=== PATIENT | male | born 1945 | race Caucasian/White ===

== ENCOUNTER 2017-02-07 05:54 | Inpatient (IN) | payer OTHER, MEDICARE ==
[2017-01-18 13:47] VITALS: BMI 34.0
--- NOTE | 2017-01-18 14:21 | PAT Medication Instructions ---
Service Date Jan 18, 2017. Current Home Medication List Albuterol Sulfate (Proair Respiclick), 2 PUFF INH Q4 PRN for SOB/Wheezing Cyclobenzaprine Hcl (Flexeril), 10 MG PO BID PRN for Muscle Spasms Gabapentin (Neurontin), 900 MG PO TID Hctz/Lisinopril (Lisinopril/Hctz 10/12.5 Mg), 1 TAB PO QPM Metformin Hcl (Glucophage), 850 MG PO 1400&2200 Oxycodone/Acetaminophen 10MG/325MG (Percocet 10MG/325MG), 2 TAB PO HS PRN for Pain Pravastatin (Pravachol ), 20 MG PO QPM Sitagliptin (Januvia), 50 MG PO QAM Medication Instructions For Your Scheduled Surgery - Hold the following medications 48 hours prior to surgery: Metformin Hcl (Glucophage), 850 MG PO 1400&2200 - Hold the following medications the morning of surgery: Cyclobenzaprine Hcl (Flexeril), 10 MG PO BID PRN for Muscle Spasms Sitagliptin (Januvia), 50 MG PO QAM - Take the following medications the morning of surgery with a sip of water: Oxycodone/Acetaminophen 10MG/325MG (Percocet 10MG/325MG), 2 TAB PO HS PRN for Pain (okay to take up to 4 hours prior to surgery if needed) Gabapentin (Neurontin), 900 MG PO TID Albuterol Sulfate (Proair Respiclick), 2 PUFF INH Q4 PRN for SOB/Wheezing (if needed) - Hold the following medications as scheduled the night before surgery: Hctz/Lisinopril (Lisinopril/Hctz 10/12.5 Mg), 1 TAB PO QPM - Take the following medications as scheduled the night before surgery: Oxycodone/Acetaminophen 10MG/325MG (Percocet 10MG/325MG), 2 TAB PO HS PRN for Pain (if needed) Pravastatin (Pravachol ), 20 MG PO QPM Gabapentin (Neurontin), 900 MG PO TID Albuterol Sulfate (Proair Respiclick), 2 PUFF INH Q4 PRN for SOB/Wheezing (if needed) If you have any questions please call us at [phone] or [phone] or [phone]
--- NOTE | 2017-01-18 14:58 | DIAGNOSTIC IMAGING REPORT ---
CHEST PREADMISSION(PA/LAT) CLINICAL HISTORY: 71 years-old Male presenting with preadmission chest x-ray, COPD. TECHNIQUE: PA and lateral views of the chest were obtained. COMPARISON: None. FINDINGS: Cardiomediastinal silhouette normal. Minimal linear opacity at the lingula. No other focal infiltrate. No pleural effusion or pneumothorax. Osseous structures normal. Upper abdomen normal. IMPRESSION: 1. Possible minimal atelectasis or scarring in the lingula. No convincing evidence of acute cardiopulmonary disease. Electronically signed by: Star Meza M.D. 01/18/2017 2:56 PM Dictated Date/Time: 01/18/2017 2:56 PM
[2017-01-18 15:01] LABS: BASO % 0.2 %; BASO ABS # 0.01 K/uL (0-0.2); COMPLETE YES; EOS % 1.6 %; HEMATOCRIT 36.6 % (42-52); IG% 0.2 %; LYMPH % 18.4 %; LYMPH ABS # 1.05 K/uL (1.2-3.4); MEAN CELL VOLUME 89.3 fL (80-100); MEAN CORPUSCULAR HEMOGLOBIN 31.5 pg (25-34); MEAN CORPUSCULAR HGB CONC 35.2 g/dl (32-36); MEAN PLATELET VOLUME 10.2 fL (7.4-10.4); MONO % 6.7 %; NEUT % 72.9 %; PLATELET COUNT 194 K/uL (130-400); WHITE BLOOD COUNT 5.71 K/uL (4.8-10.8)
[2017-01-18 15:07] LABS: URINE APPEARANCE CLEAR (CLEAR); URINE BILIRUBIN NEG (NEG); URINE COLOR YELLOW; URINE NITRITE NEG (NEG); URINE SPECIFIC GRAVITY 1.023 (1.000-1.030); UROBILINOGEN NEG (NEG); ZZUR CULT IF INDIC CLEAN CATCH NO
[2017-01-18 15:22] LABS: BUN/CREATININE RATIO 15.5 (10-20); CALCIUM 8.9 mg/dl (8.5-10.1); CREATININE 1.4 mg/dl (0.60-1.40); POTASSIUM 4.3 mmol/L (3.5-5.1)
[2017-01-18 15:32] LABS: BETA-HYDROXYBUTYRATE 1.12 mg/dL (0.2-2.81)
[2017-01-18 15:33] LABS: MANUAL MICROSCOPIC REQUIRED? NO; REVIEW REQ? NO
[~2017-02-07] VITALS: Ht 177.8 cm; Wt 109.0 kg
[2017-02-07] VITALS (11 sets, daily range): BP systolic 104–169; BP diastolic 69–96; PULSE 90–99; TEMP 36.3–36.8; O2SAT 91–98; BMI 34.0
[~2017-02-07 05:54] MED LIST: ALBU18002 INH; CYCL10TA6 PO; GABA-113 PO; LSN/10125 PO; METF-383 PO; OXYC-106 PO; PRAV20TA PO; SITA50TA3 PO
[2017-02-07] MEDS ORDERED: CEFAZOLIN 2000 MG/60 ML D5W IV SCH (06:00)
[2017-02-07] MEDS ORDERED: LACTATED RINGER'S 1000ML 1,000 ML IV SCH (06:00)
[2017-02-07] MEDS ORDERED: MIDAZOLAM HCL 1 MG/ML 2ML VIAL ONE (06:43)
[2017-02-07] MEDS ORDERED: FENTANYL CITRATE INJ 50 MCG/1 ML 2 ML VIAL ONE ×6 (06:43→10:51)
[2017-02-07] MEDS ORDERED: BACITRACIN 50000 UNIT VIAL ONE (07:02)
[2017-02-07] MEDS ORDERED: BUPIVACAINE/EPINEPHRINE 0.5% MPF 1:200,000 30 ML VIAL ONE (07:02)
[2017-02-07] MEDS ORDERED: INSULIN HUMAN REGULAR PER UNIT 5 UNITS in SYRINGE 0 ML IV STA ×2 (07:13→11:28)
[2017-02-07] MEDS ORDERED: HYDROmorphone INJ 1 MG/ML SYR IV PRN (07:15)
[2017-02-07] MEDS ORDERED: ATROPINE SULFATE 0.1 MG/ML 5ML SYR IV PRN (07:15)
[2017-02-07] MEDS ORDERED: EpHEDrine SULFATE INJ 50 MG/ML AMP IV PRN (07:15)
[2017-02-07] MEDS ORDERED: FENTANYL CITRATE INJ 50 MCG/1 ML 2 ML VIAL IV PRN (07:15)
[2017-02-07] MEDS ORDERED: ONDANSETRON INJ 2 MG/ML 2 ML VIAL IV PRN ×2 (07:15→10:45)
[2017-02-07] MEDS ORDERED: NovoLIN-R INSULIN PER UNIT CHARGE ONE ×2 (07:17→11:22)
--- NOTE | 2017-02-07 07:35 | History & Physical Bridge Note ---
H&P Re-Evaluation Bridge Note: I have examined the patient, reviewed the History & Physical and in the interval since the performance of the History & Physical I have noted the following changes of clinical significance: No changes noted
--- NOTE | 2017-02-07 07:36 | History and Physical ---
History & Physical Date Feb 07, 2017. Chief Complaint Back and leg pain History of Present Illness The patient is a 71 year old male with complaints of back and leg pain Additional History Hepatic Disease: No Endocrine Disorder: No Kidney Disease: No Hypertension: No Heart Disease: No Bleeding Tendencies: No Infectious Diseases: No Allergies Coded Allergies: NO KNOWN DRUG ALLERGIES (Verified Allergy, Unknown, NKDA, 02/07/17) Home Medications Scheduled Gabapentin (Neurontin), 900 MG PO TID Hctz/Lisinopril (Lisinopril/Hctz 10/12.5 Mg), 1 TAB PO QPM Metformin Hcl (Glucophage), 850 MG PO 1400&2200 Pravastatin (Pravachol ), 20 MG PO QPM Sitagliptin (Januvia), 50 MG PO QAM Scheduled PRN Albuterol Sulfate (Proair Respiclick), 2 PUFF INH Q4 PRN for SOB/Wheezing Cyclobenzaprine Hcl (Flexeril), 10 MG PO BID PRN for Muscle Spasms Oxycodone/Acetaminophen 10MG/325MG (Percocet 10MG/325MG), 2 TAB PO HS PRN for Pain Physical Examination Skin: warm/dry, no rash Eyes: normal inspection, EOMI, sclerae normal ENT: normal ENT inspection, pharynx normal Head: normocephalic, atraumatic Neck: supple, no adenopathy, trachea midline Respiratory/Chest: lungs clear, normal breath sounds, no respiratory distress Cardiovascular: regular rate, rhythm, no edema, no murmur Abdomen / GI: normal bowel sounds, non tender Back: normal inspection Extremities: normal inspection, normal range of motion Neurologic/Psych: no motor/sensory deficits, alert, normal reflexes, oriented x 3 Diagnosis Lumbar spinal stenosis Plan of Treatment Lumbar decompression and fusion L3 to S1
[2017-02-07] MEDS ORDERED: ALBUMIN HUMAN 5% 12.5 GM/250 ML VIAL IV ONE (07:42)
[2017-02-07] MEDS ORDERED: HYDROmorphone INJ 2 MG/ML SYR/VIAL ONE ×3 (08:08→10:53)
[2017-02-07] MEDS ORDERED: FLOSEAL HEMOSTATIC MATRIX 10ML TOP ONE (10:18)
[2017-02-07] MEDS ORDERED: NEOSTIGMINE METHYLSULFATE 1 MG/ML 10ML VIAL ONE (10:42)
[2017-02-07] MEDS ORDERED: PHENYLEPHRINE 100MCG/ML 5ML SYR ONE (10:42)
[2017-02-07] MEDS ORDERED: GLYCOPYRROLATE INJ 0.2 MG/ML VIAL ONE (10:42)
[2017-02-07] MEDS ORDERED: PROPOFOL IV EMULSION 10 MG/ML 20 ML VIAL IV ONE (10:42)
[2017-02-07] MEDS ORDERED: ONDANSETRON INJ 2 MG/ML 2 ML VIAL ONE (10:42)
[2017-02-07] MEDS ORDERED: LIDOCAINE HCL 2% 2 ML VIAL (20MG/ML) ONE (10:42)
[2017-02-07] MEDS ORDERED: ROCURONIUM BROMIDE 10 MG/ML 5 ML VIAL IV ONE (10:42)
[2017-02-07] MEDS ORDERED: DEXAMETHASONE SOD INJ 4 MG/ML VIAL ONE (10:42)
[2017-02-07] MEDS ORDERED: METOCLOPRAMIDE HCL INJ 5 MG/ML 2 ML VIAL IV PRN (10:45)
[2017-02-07] MEDS ORDERED: DO NOT ADMINISTER FLU VACCINE PRN ×3 (10:45)
[2017-02-07] MEDS ORDERED: hydrOXYzine HCL 25 MG TAB PO PRN (10:45)
[2017-02-07] MEDS ORDERED: FAMOTIDINE 20 MG TAB PO PRN (10:45)
[2017-02-07] MEDS ORDERED: ACETAMINOPHEN 500 MG TAB PO PRN (10:45)
[2017-02-07] MEDS ORDERED: DO NOT ADMINISTER PNEUMOCOCCAL VACCINE PRN ×2 (10:45)
[2017-02-07] MEDS ORDERED: ALUMINUM/MAGNESIUM SUSP 30 ML UDC PO PRN (10:45)
[2017-02-07] MEDS ORDERED: MAGNESIUM HYDROXIDE SUSP 30 ML UDC PO PRN (10:45)
[2017-02-07] MEDS ORDERED: NALOXONE HCL 0.4 MG/1 ML VIAL/CARP IV PRN ×2 (10:45)
[2017-02-07] MEDS ORDERED: ACETAMINOPHEN IV 100 ML IV PRN (10:45)
[2017-02-07] MEDS ORDERED: PROMETHAZINE HCL INJ 12.5 MG in SODIUM CHLORIDE 0.9% 50ML 50 ML IV PRN (10:45)
[2017-02-07] MEDS ORDERED: LORAZEPAM INJ 0.5 MG in SYRINGE 0.75 ML IV PRN (10:45)
[2017-02-07] MEDS ORDERED: BISACODYL 10 MG SUPP PR PRN (10:45)
[2017-02-07] MEDS ORDERED: SOD PHOSPHATE/SOD BIPHOSPHATE ENEMA 132 ML BTL PR PRN (10:45)
[2017-02-07] MEDS ORDERED: LORAZEPAM 0.5 MG TAB PO PRN (10:45)
[2017-02-07] MEDS ORDERED: SODIUM CHLORIDE 0.9% 1000ML 1,000 ML IV SCH (10:45)
--- NOTE | 2017-02-07 10:52 | [facility] Operative Report ---
Operative Report Operative Date Feb 07, 2017. Pre-Operative Diagnosis Lumbar spinal stenosis Post-Operative Diagnosis Same Procedure(s) Performed #1 lumbar decompression medial facetectomies foraminotomies L2 3 L3 4 L4 5 L5-S1. #2 posterior spinal fusion L3 4 L4 5 L5-S1. #3 placement of posterior segmental instrumentation L3 4 L4 5 L5-S1. #4 interbody fusion L4 5 L5-S1. #5 placement peek cage 13 x 26 mm at L4 5. 14 x 26 mm at L5-S1. #6 placement of locally harvested morcellized autograft in the posterior lateral gutters. #7 placement of infuse collagen sponge commode Master graft in the posterior lateral gutters and ostial amp in the interbody space. Surgeon Dr Tom Mechanic Field Service Surgeon(s) Ayesha Gross PA-C Estimated Blood Loss 650ML Findings Her spinal stenosis with spinal listhesis Specimens none Description of Procedure Patient was met with preoperatively case discussed all questions are dressed. After informed consent he was taken to the operative suite underwent intubation placed in a prone position the Jon table on top Juan Carlos frame. All bony prominences were well-padded eyes inspected to ensure there is no external pressure placed upon them. This point the lumbar spine was prepped and draped in the normal sterile fashion. Sharp dissection with the assistance of Bovie cautery was performed onto an exposing the lamina and transverse processes of L3 L4-L5 the sacral alar bilaterally. From a caudal to cephalad fashion complete laminectomy of L5 L4 L3 and partial laminectomy of L2 was performed addressing severe lateral recess as well as foraminal disease. Pedicle screws were then placed in L3 L4-L5 and S1 levels bilaterally with the assistance of fluoroscopy in the purposes jorge l provisionally placed. Through a transforaminal approach on the right complete discectomy of L5-S1 was performed and plate could subcortical bleeding bone and a 14 x 26 mm peek cage filled with ostial amp tapped in position. I then proceeded L4 5 and again through a transforaminal approach on the right complete discectomy performed and plate created to subcortical bleeding bone and a 13 x 26 mm peek cage filled with ostial amp tapped in position. Rods were then compressed locked and final position bilaterally. Cross-link locked in position. The transverse processes of L3 L4-L5 burred to subcortical bleeding bone infuse collagen sponge mask graft locally harvested morcellized autograft was placed and posterior gutters. 15 round DENISE drain inserted. Incision closed with 1 Vicryl fascia 2-0 Vicryl subcutaneously 4-0 Monocryl for final skin closure. Steri-Strips sterile dressing placed patient we can take PACU stable condition. Please note Ayesha Varela was present at the entire procedure involved in patient positioning complex portions of the surgery and final skin closure. I attest to the content of the Intraoperative Record and any orders documented therein. Any exceptions are noted below.
[2017-02-07] MEDS ORDERED: HYDROmorphone HCL 0.5MG/ML 50 ML CASSETTE ONE (11:13)
[2017-02-07] MEDS ORDERED: PHARMACY GLYCEMIC MGMT CONSULT PRN (11:17)
[2017-02-07] MEDS ORDERED: GLUCAGON FOR INJ 1 MG VIAL SQ PRN (11:30)
[2017-02-07] MEDS ORDERED: GLUCOSE 10 TABS/TUBE PO PRN (11:30)
[2017-02-07] MEDS ORDERED: GLUCOSE 40% GEL 15 GM TUBE PO PRN (11:30)
[2017-02-07] MEDS ORDERED: DEXTROSE 50% 50 ML SYR IV PRN (11:30)
[2017-02-07] MEDS ORDERED: METOPROLOL TARTRATE 1 MG/ML VIAL ONE (11:31)
--- NOTE | 2017-02-07 11:37 | DIAGNOSTIC IMAGING REPORT ---
LUMBAR SPINE 2 OR 3 VIEW CLINICAL HISTORY: L3-S1 DECOMPRESSION/FUSION. COMPARISON STUDY: No previous studies for comparison. Fluoroscopy time: 21 seconds. FINDINGS: 2 fluoroscopic images demonstrate L4-L5 and L5-S1 discectomies with interbody spacer placement. There is a posterior decompression. Bilateral pedicle screws are noted at the L3, L4, L5 and S1 levels with interconnecting rods. IMPRESSION: Expected findings following L4-L5 and L5-S1 discectomies with L3-S1 bilateral pedicle screw fusion with decompression. Electronically signed by: Anton Regalado M.D. 02/07/2017 11:36 AM Dictated Date/Time: 02/07/2017 11:35 AM
--- NOTE | 2017-02-07 12:32 | Anesthesiology Progress Note ---
Anesthesia Post Op Note Date & Time Feb 07, 2017 at 12:32 Vital Signs Pain Intensity: 5 Vital Signs Past 12 Hours Date Time Temp Pulse Resp B/P (MAP) Pulse Ox O2 Delivery O2 Flow Rate FiO2 02/07/17 12:16 139/79 02/07/17 12:15 95 18 02/07/17 12:15 94 18 93 02/07/17 12:11 122/84 02/07/17 12:10 94 13 94 02/07/17 12:10 95 13 02/07/17 12:06 137/75 02/07/17 12:05 95 17 02/07/17 12:05 94 17 93 02/07/17 12:02 139/71 02/07/17 12:00 95 14 94 02/07/17 12:00 95 14 02/07/17 11:57 36.7 98 16 156/79 95 Nasal Cannula 4 02/07/17 11:56 156/79 02/07/17 11:55 97 16 02/07/17 11:55 97 16 99 02/07/17 11:51 151/86 02/07/17 11:50 94 13 99 02/07/17 11:50 94 13 02/07/17 11:49 92 10 97 02/07/17 11:49 92 10 02/07/17 11:46 155/89 02/07/17 11:44 93 15 98 02/07/17 11:44 93 15 02/07/17 11:41 142/86 02/07/17 11:39 92 21 98 02/07/17 11:39 93 21 02/07/17 11:37 137/81 02/07/17 11:34 94 17 02/07/17 11:34 94 17 98 02/07/17 11:32 159/74 17 11:29 92 19 98 1817 11:29 92 19 17 11:26 149/85 17 11:24 96 17 17 11:24 95 17 99 17 11:21 143/98 17 11:19 97 18 02/07/17 11:19 96 18 98 17 11:16 164/79 17 11:14 98 20 97 02/07/17 11:14 99 20 02/07/17 11:10 162/93 02/07/17 11:09 36.3 109 16 162/93 97 Mask 10 02/07/17 06:21 36.4 90 169/96 96 Room Air Notes Mental Status: alert / awake / arousable, participated in evaluation Pt Amnestic to Procedure: Yes Nausea / Vomiting: adequately controlled Pain: adequately controlled Airway Patency, RR, SpO2: stable & adequate BP & HR: stable & adequate Hydration State: stable & adequate Anesthetic Complications: no major complications apparent Patient slow to wake in recovery. Now is answering questions appropriately and correctly oriented to person time and place. VSS. No anesthetic questions. No complications noted.
[2017-02-07] MEDS: SODIUM CHLORIDE 0.9% 1000ML 1,000 ML IV SCH ×2 (13:00→18:11)
[2017-02-07] MEDS: HYDROmorphone HCL 0.5MG/ML 50 ML CASSETTE IV PRN ×3 (13:04→22:49)
[2017-02-07] MEDS ORDERED: INSULIN ASPART 100 UNITS/ML 3 ML PEN SC ONE (13:45)
[2017-02-07] MEDS ORDERED: INSULIN GLARGINE SOLOSTAR 100 UNITS/ML 3 ML PEN SC ONE (14:00)
[2017-02-07] MEDS ORDERED: INSULIN REGULAR 10 UNITS in SYRINGE 9.9 ML IV ONE (14:00)
--- NOTE | 2017-02-07 14:02 | Pharmacy Progress Note ---
Glycemic Control Intl Consult Date of Service Feb 07, 2017. Scope Glycemic Pharmacist consulted by Dr Tom on 02/07/17 for glycemic control and to write orders per [facility] inpatient glycemic control protocol Objective Weight (Kilograms): 109.00 Accuchecks BSG (last 24hrs): Test 02/07/17 06:17 02/07/17 11:20 02/07/17 12:09 02/07/17 13:23 Bedside Glucose 270 mg/dl (70-99) 326 mg/dl (70-99) 302 mg/dl (70-99) 330 mg/dl (70-99) Recent Pertinent Medications Outpatient Anti-diabetic Regimen: * Januvia 50 mg PO qAM + metformin 850 mg PO BID * A1c unknown - ordered for 02/08 Risk Factors for Insulin Resistance: * Steroids: Dex 12 mg in OR, then 6 mg IV every 8 hours x 3 doses * Recent Surgery: POD #0 s/p lumbar decompression and fusion * Diet: T2DM Assessment & Plan ASSESSMENT: * 71 yr old T2DM male admitted for lumbar decompression and fusion. Patient ordered high dose IV steroids post-operatively. * Pt is maintained on oral antidiabetic agents as an outpatient * Will hold oral agents for admission and utilize SQ basal bolus insulin regimen which is the recommended regimen for inpatient glycemic control. * Will initiate weight based insulin dosing for insulin hiwot patient and titrate based on BSG trends. * Anticipate difficultly with BSG control due to hyperglycemia while in the OR/ PACU and IV steroids. * ADA & AACE recommend a goal blood sugar range 140-180 mg/dl for the majority of critically ill & non-critically ill patients. However, more stringent targets may be selected in individual cases. Will utilize more stringent goal of 110-140mg/dl based on patient age & comorbidities. Additionally, tighter glycemic control is warranted to facilitate wound/infection healing. PLAN FOR INPATIENT GLYCEMIC CONTROL: * Regular insulin 10 unit IV bolus x 1 now for BSG > 300 mg/dL * Pending order to initiate IV insulin infusion if BSG remains > 250 mg/dL * Goal Range 100 - 180 mg/dl * Per severe stress protocol * Basal insulin * Lantus 50 units SQ x 1 dose, further orders to be determined on 02/08 am * Correctional Insulin with NOVOLOG per scale ACHS or Q6hrs while NPO * Goal Range: Low 110 mg/dL - High 140 mg/dL * Correction Factor: 15 mg/dL/unit * Nutritional / Prandial insulin per carb ratio of 1 unit per 5 grams CHO consumed * Add overnight checks with coverage at 00 and 04 * Please note that the plan above was derived based on current level of insulin resistance and hospital stress. These recommendations are appropriate for inpatient admission only. Plan of care upon discharge will need to be reassessed to avoid potential outpatient hypo/hyperglycemia. Thank you.
[2017-02-07] MEDS: DEXAMETHASONE INJ 6 MG in SYRINGE 0 ML IV SCH (18:12)
[2017-02-07] MEDS: CEFAZOLIN IV 2,000 MG in DEXTROSE 5% 50ML 50 ML IV SCH (18:12)
[2017-02-07] MEDS: INSULIN ASPART 100 UNITS/ML 3 ML PEN SC SCH ×2 (18:17→21:38)
[2017-02-07] MEDS ORDERED: SILD100T PO (19:58)
[2017-02-07] MEDS ORDERED: PRAV20TA PO (19:58)
[2017-02-07] MEDS ORDERED: ALBUTEROL HFA 8 GM INHALER INH PRN (20:00)
--- NOTE | 2017-02-07 20:14 | Medical Consult ---
Consultation Date of Consultation: Feb 07, 2017. Attending Physician: Avni Tom D.O. Reason for Consultation: postop medical management History of Present Illness Patient seen and examined after undergoing lumbar decompression/ fusion today by Dr. Tom. Admits to postop pain which improves with use of SUPPORT SERVICE TECH. Ate well postop. BSG's were elevated to 300's but improved to 220's. States blood sugars run similarly at home. Takes his metformin and Januvia as prescribed until this morning when instructed to hold. Does not comply with diabetic diet. Intermittently follow with diabetes pharmacist. Denies numbness/tingling, weakness, chest pain, SOB, productive cough, N/V, diarrhea, constipation. Had a normal BM yesterday. Has Fierro in place. Past Medical/Surgical History Medical Problems: (1) COPD (chronic obstructive pulmonary disease) Status: Chronic (2) DM type 2 (diabetes mellitus, type 2) Status: Chronic (3) Dyslipidemia Status: Chronic (4) History of kidney stones Status: Chronic (5) HTN (hypertension) Status: Chronic (6) PAYTON on CPAP Status: Chronic Surgical Problems: (1) H/O arthroscopic knee surgery Status: Chronic (2) H/O colonoscopy with polypectomy Status: Chronic (3) S/P cholecystectomy Status: Chronic (4) S/P tonsillectomy and adenoidectomy Status: Chronic Family History FH: lung cancer FATHER Social History Smoking Status: Former Smoker (quit 2010, 1 ppd x 50 years) Alcohol Use: none Drug Use: none Marital Status: Housing Status: lives with significant other Allergies Coded Allergies: NO KNOWN DRUG ALLERGIES (Verified Allergy, Unknown, NKDA, 02/07/17) Home Medications Active Reported Viagra (Sildenafil Citrate) 100 Mg Tab 100 Mg PO UD PRN Pravachol (Pravastatin Sodium) 20 Mg Tab 20 Mg PO HS Proair Respiclick (Albuterol Sulfate) 108 Mcg/Act Aer 2 Puff INH QID PRN Neurontin (Gabapentin) 300 Mg Cap 900 Mg PO TID Flexeril (Cyclobenzaprine Hcl) 10 Mg Tab 10 Mg PO BID PRN Percocet 10MG/325MG (Oxycodone/Acetaminophen) Tab 2 Tab PO HS PRN Lisinopril/Hctz 10/12.5 Mg (HCTZ/Lisinopril) 1 Ea Tab 1 Tab PO QPM Glucophage (Metformin Hcl) 850 Mg Tab 850 Mg PO 1400&2200 Januvia (Sitagliptin) 50 Mg Tab 50 Mg PO QAM Current Inpatient Medications Current Inpatient Medications Medications (Trade) Dose Ordered Sig/Robert Route Start Time Stop Time Status Last Admin Dose Admin Dexamethasone Sodium Phosphate 6 mg/Syringe 1.5 ml @ 1 mls/min Q8H IV 02/07/17 18:00 02/08/17 10:02 02/07/17 18:12 1 MLS/MIN Promethazine HCl 12.5 mg/Sodium Chloride 50.5 ml @ 202 mls/hr Q6H PRN IV 02/07/17 10:45 03/09/17 10:44 Ondansetron HCl (Zofran Inj) 4 mg Q6H PRN IV 02/07/17 10:45 03/09/17 10:44 Metoclopramide HCl (Reglan Inj) 10 mg Q6H PRN IV 02/07/17 10:45 03/09/17 10:44 Lorazepam (Ativan Tab) 0.5 mg Q8H PRN PO 02/07/17 10:45 03/09/17 10:44 Lorazepam 0.5 mg/ Syringe 1 ml @ 1 mls/min Q8H PRN IV 02/07/17 10:45 03/09/17 10:44 Pneumococcal Polysaccharide Vaccine 1 ea PRN PRN N/A 02/07/17 10:45 03/09/17 10:44 Influenza Virus Vacc Triv Types A&B 1 ea PRN PRN N/A 02/07/17 10:45 03/09/17 10:44 Polyethylene (Miralax Powder Packet) 17 gm Q6 PO 02/09/17 06:00 03/11/17 05:59 Bisacodyl (Dulcolax Supp) 10 mg DAILY PRN [place] 02/07/17 10:45 03/09/17 10:44 Magnesium Hydroxide (Milk Of Magnesia Susp) 30 ml DAILY PRN PO 02/07/17 10:45 03/09/17 10:44 Hydromorphone HCl (Dilaudid Inj) 0.5 mg Q3H PRN IV 02/08/17 06:00 02/22/17 05:59 Oxycodone HCl (Roxicodone Immediate Rel Tab) 5-10mg prn moderate to sev... Q4H PRN PO 02/08/17 06:00 02/22/17 05:59 Cefazolin Sodium 2000 mg/Dextrose 60 ml @ 100 mls/hr Q8H IV 02/07/17 18:00 02/08/17 02:35 02/07/17 18:12 100 MLS/HR Sodium Chloride 1,000 ml @ 150 mls/hr Q6H40M IV 02/07/17 10:45 03/09/17 10:44 02/07/17 18:11 150 MLS/HR Acetaminophen (Tylenol Tab) 1,000 mg Q8H PRN PO 02/07/17 10:45 03/09/17 10:44 Acetaminophen 100 ml @ 400 mls/hr Q8H PRN IV 02/07/17 10:45 03/09/17 10:44 Naloxone HCl (Narcan Inj) 0.1 mg Q5M PRN IV 02/07/17 10:45 03/09/17 10:44 Senna/Docusate Sodium (Senokot S Tab) 2 tab HS PO 02/07/17 21:00 03/09/17 20:59 Sodium Biphosphate/ Sodium Phosphate (Fleet Enema) 132 ml ONE PRN [place] 02/07/17 10:45 03/09/17 10:44 Hydroxyzine HCl (Vistaril Tab) 25 mg Q8H PRN PO 02/07/17 10:45 03/09/17 10:44 Al Hydroxide/Mg Hydroxide (Maalox Susp) 30 ml Q6H PRN PO 02/07/17 10:45 03/09/17 10:44 Famotidine (Pepcid Tab) 20 mg Q12 PRN PO 02/07/17 10:45 03/09/17 10:44 Diphenhydramine HCl (Benadryl Cap) 25 mg Q6H PRN PO 02/07/17 10:45 03/09/17 10:44 Miscellaneous Information (Discontinue SUPPORT SERVICE TECH) 1 ea TODAY@0600 N/A 02/08/17 06:00 02/08/17 06:01 Naloxone HCl (Narcan Inj) 0.1 mg Q5M PRN IV 02/07/17 10:45 02/08/17 06:00 Hydromorphone HCl (Dilaudid Otr Owner Operator) 25 mg PRN PRN IV 02/07/17 10:45 02/08/17 06:00 02/07/17 15:14 25 MG Sodium Chloride 1,000 ml @ 15 mls/hr Q24H IV 02/07/17 10:45 02/08/17 06:00 02/07/17 13:02 15 MLS/HR Miscellaneous Information (Consult Glycemic Management Pharmacy) 1 ea UD PRN N/A 02/07/17 11:17 03/09/17 11:16 Insulin Aspart (novoLOG ASPART) SLIDING SCALE ACHS SC 02/07/17 12:00 03/09/17 11:59 02/07/17 18:17 20 UNITS Glucose (Glucose 40% Gel) 15-30 GRAMS 15 GRAMS... UD PRN PO 02/07/17 11:30 03/09/17 11:29 Glucose (Glucose Chew Tab) 4-8 Tablets 4 Tabl... UD PRN PO 02/07/17 11:30 03/09/17 11:29 Dextrose (Dextrose 50% 50ML Syringe) 25-50ML OF 50% DW IV FOR... UD PRN IV 02/07/17 11:30 03/09/17 11:29 Glucagon (Glucagon Inj) 1 mg UD PRN SQ 02/07/17 11:30 03/09/17 11:29 Hydromorphone HCl (Dilaudid Inj) 1 mg Q3H PRN IV 02/08/17 06:00 02/22/17 05:59 Insulin Aspart (novoLOG ASPART) SLIDING SCALE 0000,0400 [place] 02/08/17 00:00 02/08/17 04:01 Insulin Human Regular (Insulin IV Infusion Protocol) 1 ea 2100 ONCE N/A 02/07/17 21:00 02/07/17 21:01 Review of Systems Ten systems reviewed and negative except as noted in HPI. Physical Exam Date Time Temp Pulse Resp B/P (MAP) Pulse Ox O2 Delivery O2 Flow Rate FiO2 02/07/17 19:04 36.6 97 18 104/69 (81) 91 Room Air 02/07/17 16:00 Nasal Cannula 4.0 02/07/17 15:35 36.3 97 18 135/74 (94) 96 Nasal Cannula 4.0 9/18/17 14:39 98 16 144/87 (106) 98 Nasal Cannula 4.0 /18/17 13:40 99 20 142/89 (106) 97 Nasal Cannula 4.0 18/17 13:10 90 20 138/79 (98) 94 Nasal Cannula 4.0 /18/17 12:40 94 Nasal Cannula 4.0 /18/17 12:40 94 Nasal Cannula 4.0 18/17 12:40 36.8 92 16 153/85 (107) 94 Nasal Cannula 4.0 18/17 12:16 139/79 18/17 12:15 95 18 18/17 12:15 94 18 93 18/17 12:11 122/84 18/17 12:10 94 13 94 18/17 12:10 95 13 18/17 12:06 137/75 18/17 12:05 95 17 18/17 12:05 94 17 93 18/17 12:02 139/71 18/17 12:00 95 14 94 18/17 12:00 95 14 18/17 11:57 36.7 98 16 156/79 95 Nasal Cannula 4 18/17 11:56 156/79 18/17 11:55 97 16 18/17 11:55 97 16 99 18/17 11:51 151/86 18/17 11:50 94 13 99 /18/17 11:50 94 13 /18/17 11:49 92 10 97 /18/17 11:49 92 10 18/17 11:46 155/89 18/17 11:44 93 15 98 9/18/17 11:44 93 15 /18/17 11:41 142/86 9/18/17 11:39 92 21 98 9/18/17 11:39 93 21 /18/17 11:37 137/81 918/17 11:34 94 17 9/18/17 11:34 94 17 98 9/18/17 11:32 159/74 9/18/17 11:29 92 19 98 9/18/17 11:29 92 19 9/18/17 11:26 149/85 918/17 11:24 96 17 9/18/17 11:24 95 17 99 02/07/17 11:21 143/98 02/07/17 11:19 97 18 02/07/17 11:19 96 18 98 02/07/17 11:16 164/79 02/07/17 11:14 98 20 97 02/07/17 11:14 99 20 02/07/17 11:10 162/93 02/07/17 11:09 36.3 109 16 162/93 97 Mask 10 02/07/17 06:21 36.4 90 169/96 96 Room Air General Appearance: WD/WN, + obese Head: normocephalic, atraumatic Eyes: normal inspection ENT: hearing grossly normal Neck: supple, trachea midline Respiratory/Chest: lungs clear, normal breath sounds, no respiratory distress, no accessory muscle use Cardiovascular: regular rate, rhythm, no murmur Abdomen/GI: normal bowel sounds, non tender, soft Back: + pertinent finding (dressing in place s/p lumbar surgery. DENISE drain with sanguinous drainage. ) Extremities/Musculoskelatal: no calf tenderness, no pedal edema, + pertinent finding (SCD's in place) Neurologic/Psych: alert, normal mood/affect, oriented x 3, + pertinent finding (sensation to light touch intact bilateral feet. ankle flexion/ extension intact bilateral LE. ) Skin: normal color, warm/dry Laboratory Results 01/18/17 14:30 Red Blood Count 4.10, Mean Corpuscular Volume 89.3, Mean Corpuscular Hemoglobin 31.5, Mean Corpuscular Hemoglobin Concent 35.2, Mean Platelet Volume 10.2, Neutrophils (%) (Auto) 72.9, Lymphocytes (%) (Auto) 18.4, Monocytes (%) (Auto) 6.7, Eosinophils (%) (Auto) 1.6, Basophils (%) (Auto) 0.2, Neutrophils # (Auto) 4.17, Lymphocytes # (Auto) 1.05, Monocytes # (Auto) 0.38, Eosinophils # (Auto) 0.09, Basophils # (Auto) 0.01 01/18/17 14:30 Test 01/18/17 14:30 02/07/17 06:40 02/07/17 21:06 White Blood Count 5.71 K/uL (4.8-10.8) Red Blood Count 4.10 M/uL (4.7-6.1) Hemoglobin 12.9 g/dL (14.0-18.0) Hematocrit 36.6 % (42-52) Mean Corpuscular Volume 89.3 fL (80-100) Mean Corpuscular Hemoglobin 31.5 pg (25-34) Mean Corpuscular Hemoglobin Concent 35.2 g/dl (32-36) Platelet Count 194 K/uL (130-400) Mean Platelet Volume 10.2 fL (7.4-10.4) Neutrophils (%) (Auto) 72.9 % Lymphocytes (%) (Auto) 18.4 % Monocytes (%) (Auto) 6.7 % Eosinophils (%) (Auto) 1.6 % Basophils (%) (Auto) 0.2 % Neutrophils # (Auto) 4.17 K/uL (1.4-6.5) Lymphocytes # (Auto) 1.05 K/uL (1.2-3.4) Monocytes # (Auto) 0.38 K/uL (0.11-0.59) Eosinophils # (Auto) 0.09 K/uL (0-0.5) Basophils # (Auto) 0.01 K/uL (0-0.2) RDW Standard Deviation 43.1 fL (36.4-46.3) RDW Coefficient of Variation 13.2 % (11.5-14.5) Immature Granulocyte % (Auto) 0.2 % Immature Granulocyte # (Auto) 0.01 K/uL (0.00-0.02) Urine Color YELLOW Urine Appearance CLEAR (CLEAR) Urine pH 6.0 (4.5-7.5) Urine Specific [place] 1.023 (1.000-1.030) Urine Protein NEG (NEG) Urine Glucose (UA) 3+ (NEG) Urine Ketones NEG (NEG) Urine Occult Blood NEG (NEG) Urine Nitrite NEG (NEG) Urine Bilirubin NEG (NEG) Urine Urobilinogen NEG (NEG) Urine Leukocyte Esterase NEG (NEG) Anion Gap 7.0 mmol/L (3-11) Est Creatinine Clear Calc Drug Dose 59.8 ml/min Estimated GFR () 58.2 Estimated GFR (Non- 50.2 BUN/Creatinine Ratio 15.5 (10-20) Calcium Level 8.9 mg/dl (8.5-10.1) Beta-Hydroxybutyric Acid 1.12 mg/dL (0.2-2.81) Hepatitis C Antibody Screen NEG (NEG) Bedside Glucose 235 mg/dl (70-99) Last 24 Hours Test 02/07/17 06:17 02/07/17 06:40 02/07/17 11:20 02/07/17 12:09 Bedside Glucose 270 mg/dl 326 mg/dl 302 mg/dl Hepatitis C Antibody Screen NEG Test 02/07/17 13:23 02/07/17 16:51 Bedside Glucose 330 mg/dl 224 mg/dl Assessment & Plan S/P LUMBAR DECOMPRESSION/ FUSION POD #[address] Tom Doing well postoperatively Pain control, wound care, and activity per ortho Continue incentive spirometry Monitor daily H/H for sign of acute blood loss anemia PT/ OT DM TYPE 2 Hold Januvia and metformin BSG's elevated to 300s -> improved to 200's Monitor for worsening BSG's while on postop IV steroids Novolog sliding scale Pharmacy on board for glycemic control clinical trial educator consult A1c ordered HYPERTENSION Continue lisinopril Hold HCTZ for now to prevent dehydration COPD Not in acute exacerbation Continue home inhaler PAYTON Continue CPAP DYSLIPIDEMIA Continue statin DVT PROPHYLAXIS Per ortho Patient seen in collaboration with Dr. Mariscal. Please see her addendum. ADDENDUM: I have seen and evaluated the patient and agree with the assessment and plan as above. DO Davey
[2017-02-07] MEDS ORDERED: INSULIN IV INFUSION PROTOCOL ONE (21:00)
[2017-02-07] MEDS: DOCUSATE SODIUM/SENNA 50/8.6MG TAB PO SCH (21:33)
[2017-02-07] MEDS: PRAVASTATIN SOD 20 MG TAB PO SCH (21:34)
[2017-02-07] MEDS: GABAPENTIN 300 MG CAP PO SCH (21:34)
[2017-02-08] MEDS: SODIUM CHLORIDE 0.9% 1000ML 1,000 ML IV SCH (00:09)
[2017-02-08] MEDS: INSULIN ASPART 100 UNITS/ML 3 ML PEN SC SCH ×6 (00:09→21:00)
[2017-02-08] MEDS: DEXAMETHASONE INJ 6 MG in SYRINGE 0 ML IV SCH ×2 (01:59→10:57)
[2017-02-08] MEDS: CEFAZOLIN IV 2,000 MG in DEXTROSE 5% 50ML 50 ML IV SCH (01:59)
[2017-02-08 03:41] VITALS: BP 107/62; PULSE 88; TEMP 36.5; O2SAT 91
[2017-02-08] MEDS ORDERED: HYDROmorphone INJ 0.5 MG/0.5 ML SYR IV PRN (06:00)
[2017-02-08] MEDS ORDERED: NURSING VERBAL MED ORDER ONE (06:00)
[2017-02-08] MEDS ORDERED: HYDROmorphone INJ 1 MG/ML SYR IV PRN (06:00)
[2017-02-08] MEDS ORDERED: DC PCA SCH (06:00)
[2017-02-08 06:25] LABS: COMPLETE YES; HEMATOCRIT 29.3 % (42-52); IG% 0.3 %; LYMPH % 5.1 %; LYMPH ABS # 0.67 K/uL (1.2-3.4); MEAN CELL VOLUME 88.8 fL (80-100); MEAN CORPUSCULAR HEMOGLOBIN 30.6 pg (25-34); MEAN CORPUSCULAR HGB CONC 34.5 g/dl (32-36); MEAN PLATELET VOLUME 9.9 fL (7.4-10.4); MONO % 2.3 %; NEUT % 92.3 %; PLATELET COUNT 242 K/uL (130-400); WHITE BLOOD COUNT 13.25 K/uL (4.8-10.8)
[2017-02-08 07:03] LABS: BUN/CREATININE RATIO 19.6 (10-20); CALCIUM 8.4 mg/dl (8.5-10.1); CREATININE 1.3 mg/dl (0.60-1.40); POTASSIUM 4.3 mmol/L (3.5-5.1)
[2017-02-08 07:10] VITALS: BP 123/71; PULSE 89; TEMP 36.7; O2SAT 90
[2017-02-08] MEDS: OXYCODONE HCL IR 5 MG TAB (IMMEDIATE RELEASE) PO PRN ×3 (07:28→22:24)
[2017-02-08] MEDS ORDERED: INSULIN GLARGINE SOLOSTAR 100 UNITS/ML 3 ML PEN SC ONE (08:00)
--- NOTE | 2017-02-08 08:05 | Progress Note ---
Progress Note Date of Service Feb 08, 2017. Progress Note Patient's back pain is controlled. Leg pain improved. Vital signs are stable. DENISE drain decreasing probably. Assessment status post multilevel decompression fusion. Planned this time initiate physical therapy advance bowel regiment anticipate home with home health.
[2017-02-08] MEDS ORDERED: KETOROLAC TROMETHAMINE 15 MG/ML VIAL IV. PRN (08:15)
--- NOTE | 2017-02-08 09:02 | Anesthesiology Progress Note ---
Anesthesia Post Op Note Date & Time Feb 08, 2017 at 09:02 Vital Signs Pain Intensity: 7.0 Vital Signs Past 12 Hours Date Time Temp Pulse Resp B/P (MAP) Pulse Ox O2 Delivery O2 Flow Rate FiO2 02/08/17 07:22 Room Air 02/08/17 07:10 36.7 89 19 123/71 (88) 90 Room Air 02/08/17 03:41 36.5 88 18 107/62 (77) 91 Room Air 02/08/17 00:18 CPAP 02/07/17 22:45 36.7 92 18 119/79 (92) 95 CPAP Notes Mental Status: alert / awake / arousable, participated in evaluation Pt Amnestic to Procedure: Yes Nausea / Vomiting: adequately controlled Pain: adequately controlled Airway Patency, RR, SpO2: stable & adequate BP & HR: stable & adequate Hydration State: stable & adequate Anesthetic Complications: no major complications apparent
[2017-02-08] MEDS: LISINOPRIL 10 MG TAB PO SCH (09:13)
[2017-02-08] MEDS: GABAPENTIN 300 MG CAP PO SCH ×3 (09:13→21:00)
[2017-02-08 09:55] LABS: ESTIMATED AVERAGE GLUCOSE 220 mg/dl; HA1C FLAG Normal (Normal)
[2017-02-08] MEDS ORDERED: INSULIN HUMAN REGULAR IV BOLUS 2.5 UNIT in SYRINGE 0 ML IV ONE (10:00)
--- NOTE | 2017-02-08 10:12 | Pharmacy Progress Note ---
Glycemic Control Progress Note Date of Service Feb 08, 2017. Scope Glycemic Pharmacist consulted for glycemic control to write orders per [facility] inpatient glycemic control protocol. Objective Accuchecks BSG (last 24hrs): Test 02/07/17 11:20 02/07/17 12:09 02/07/17 13:23 02/07/17 16:51 Bedside Glucose 326 mg/dl (70-99) 302 mg/dl (70-99) 330 mg/dl (70-99) 224 mg/dl (70-99) Test 02/07/17 21:06 02/07/17 23:56 02/08/17 03:36 02/08/17 05:53 Bedside Glucose 235 mg/dl (70-99) 203 mg/dl (70-99) 246 mg/dl (70-99) Random Glucose 263 mg/dl (70-99) Test 02/08/17 07:58 Bedside Glucose 281 mg/dl (70-99) HbA1c: Test 02/08/17 05:53 Hemoglobin A1c 9.3 % (4.5-5.6) H Recent Pertinent Medications Inpatient Anti-diabetic Regimen: * Lantus 50 units SQ 9/18 pm * Correctional Insulin with NOVOLOG per scale ACHS * Goal Range: Low 110 mg/dL - High 140 mg/dL * Correction Factor: 15 mg/dL/unit * Nutritional / Prandial insulin per carb ratio of 1 unit per 5 grams CHO consumed Risk Factors for Insulin Resistance: * Steroids: Dex 6 mg IV every 8 hours x 3 doses * Recent Surgery: POD #1 s/p lumbar decompression and fusion * Diet: T2DM Outpatient Anti-Diabetic Meds Oral Agents * Januvia 50 mg PO qam + Metformin 850 mg PO BID Assessment & Plan ASSESSMENT: * 71 yr old T2DM male POD #1 s/p lumbar decompression and fusion. * Patient ordered high dose IV steroids post-operatively * Last dose of dexamethasone IV is today at 1000 * Will initiate short term IV insulin infusion for sustained steroid induced hyperglycemia. PLAN FOR INPATIENT GLYCEMIC CONTROL: * Initiate IV insulin infusion for sustained severe hyperglycemia * Goal Range 110 - 190 mg/dl * Per moderate stress protocol * Lantus 38 units SQ this am * Lantus 0-20 units SQ tonight * 0 units for BSG <100 mg/dL * 10 units for BSG 100-140 mg/dL * 20 units for BSG greater than 140 mg/dL * Correctional Insulin with NOVOLOG per scale ACHS - tighten * Goal Range: Low 110 mg/dL - High 140 mg/dL * Correction Factor: 12 mg/dL/unit * Nutritional / Prandial insulin per carb ratio of 1 unit per 4 grams CHO consumed * Add overnight checks with coverage at 00 and 04 * Please note that the plan above was derived based on current level of insulin resistance and hospital stress. These recommendations are appropriate for inpatient admission only. Plan of care upon discharge will need to be reassessed to avoid potential outpatient hypo/hyperglycemia. Thank you.
[2017-02-08] MEDS: INSULIN REGULAR 250 UNITS in SODIUM CHLORIDE 0.9% 250ML 250 ML IV SCH ×7 (10:47→23:06)
[2017-02-08 13:19] VITALS: BMI 34.5
[2017-02-08 15:00] VITALS: BP 129/69; PULSE 92; TEMP 36.5; O2SAT 94
--- NOTE | 2017-02-08 19:39 | Progress Note ---
Internal Med Progress Note Date of Service: Feb 08, 2017. Provider Documentation: SUBJECTIVE: offers no complain concerned for addition of Lantus as his BSG been elevated , Hb A1c shows poor control of DM OBJECTIVE: Vital Signs-as noted below Exam: General-no sign of distress Eyes-sclera non icteric ENT-NAD Neck-no JVD Lungs-CTA Heart-regular S1/S2 Abdomen-soft, non tender Extremities-no lower ext edema ; s/p spinal surgery , DENISE drain present Neuro-AAO x3 Lab data as noted below. ASSESSMENT & PLAN: S/P LUMBAR DECOMPRESSION/ FUSION POD # [address] Tom Doing well postoperatively Pain control, wound care, and activity per ortho Continue incentive spirometry Monitor daily H/H for sign of acute blood loss anemia PT/ OT DM TYPE 2 Hold Januvia and metformin; poorly controlled HB A1 C 9.3 pt admits of not following diabetic diet no doing exercise BSG's elevated to 300s -> improved to 200's Monitor for worsening BSG's while on postop IV steroids Novolog sliding scale Pharmacy on board for glycemic control-appreciate input pt will benefit from addition of basal Lantus for better control of blood sugar and improved A1c D/w pt -willing to do once daily basal Lantus , does not want to do pre meals - will be too complicated for him follows with MTM clinic at [facility] HYPERTENSION Continue lisinopril Hold HCTZ for now to prevent dehydration COPD Not in acute exacerbation Continue home inhaler PAYTON Continue CPAP DYSLIPIDEMIA Continue statin DVT PROPHYLAXIS Per ortho DISPOSITION cont PT/OT Vital Signs: Date Time Temp Pulse Resp B/P (MAP) Pulse Ox O2 Delivery O2 Flow Rate FiO2 02/08/17 15:55 Room Air 02/08/17 15:00 36.5 92 20 129/69 (89) 94 Room Air 02/08/17 07:22 Room Air 02/08/17 07:10 36.7 89 19 123/71 (88) 90 Room Air 02/08/17 03:41 36.5 88 18 107/62 (77) 91 Room Air 02/08/17 00:18 CPAP 02/07/17 22:45 36.7 92 18 119/79 (92) 95 CPAP Lab Results: Results Past 24 Hours Test 02/07/17 21:06 02/07/17 23:56 02/08/17 03:36 02/08/17 05:53 Range/Units Bedside Glucose 235 203 246 70-99 mg/dl White Blood Count 13.25 4.8-10.8 K/uL Red Blood Count 3.30 4.7-6.1 M/uL Hemoglobin 10.1 14.0-18.0 g/dL Hematocrit 29.3 42-52 % Mean Corpuscular Volume 88.8 80-100 fL Mean Corpuscular Hemoglobin 30.6 25-34 pg Mean Corpuscular Hemoglobin Concent 34.5 32-36 g/dl Platelet Count 242 130-400 K/uL Mean Platelet Volume 9.9 7.4-10.4 fL Neutrophils (%) (Auto) 92.3 % Lymphocytes (%) (Auto) 5.1 % Monocytes (%) (Auto) 2.3 % Eosinophils (%) (Auto) 0.0 % Basophils (%) (Auto) 0.0 % Neutrophils # (Auto) 12.23 1.4-6.5 K/uL Lymphocytes # (Auto) 0.67 1.2-3.4 K/uL Monocytes # (Auto) 0.31 0.11-0.59 K/uL Eosinophils # (Auto) 0.00 0-0.5 K/uL Basophils # (Auto) 0.00 0-0.2 K/uL RDW Standard Deviation 40.4 36.4-46.3 fL RDW Coefficient of Variation 12.5 11.5-14.5 % Immature Granulocyte % (Auto) 0.3 % Immature Granulocyte # (Auto) 0.04 0.00-0.02 K/uL Sodium Level 135 136-145 mmol/L Potassium Level 4.3 3.5-5.1 mmol/L Chloride Level 104 98-107 mmol/L Carbon Dioxide Level 24 21-32 mmol/L Anion Gap 7.0 3-11 mmol/L Blood Urea Nitrogen 26 7-18 mg/dl Creatinine 1.30 0.60-1.40 mg/dl Est Creatinine Clear Calc Drug Dose 64.4 ml/min Estimated GFR () 63.6 Estimated GFR (Non- 54.9 BUN/Creatinine Ratio 19.6 10-20 Random Glucose 263 70-99 mg/dl Estimated Average Glucose 220 mg/dl Hemoglobin A1c 9.3 4.5-5.6 % Calcium Level 8.4 8.5-10.1 mg/dl Test 02/08/17 07:58 02/08/17 11:55 02/08/17 12:55 02/08/17 13:53 Range/Units Bedside Glucose 281 259 214 261 70-99 mg/dl Test 02/08/17 14:55 02/08/17 15:58 02/08/17 17:00 02/08/17 17:50 Range/Units Bedside Glucose 208 225 205 227 70-99 mg/dl Test 02/08/17 19:18 02/08/17 20:07 Range/Units Bedside Glucose 284 260 70-99 mg/dl
[2017-02-08] MEDS: PRAVASTATIN SOD 20 MG TAB PO SCH (21:00)
[2017-02-08] MEDS: DOCUSATE SODIUM/SENNA 50/8.6MG TAB PO SCH (21:00)
[2017-02-08] MEDS: INSULIN GLARGINE SOLOSTAR 100 UNITS/ML 3 ML PEN SC SCH (21:11)
[2017-02-08 23:55] VITALS: BP 118/74; PULSE 83; TEMP 36.5; O2SAT 94
[2017-02-09] MEDS: INSULIN REGULAR 250 UNITS in SODIUM CHLORIDE 0.9% 250ML 250 ML IV SCH ×3 (00:06→02:04)
[2017-02-09] MEDS: POLYETHYLENE (MIRALAX) 17 GM PACK PO SCH ×4 (06:22→23:37)
[2017-02-09 06:36] VITALS: BP 131/77; PULSE 76; TEMP 36.4; O2SAT 97
[2017-02-09] MEDS: INSULIN ASPART 100 UNITS/ML 3 ML PEN SC SCH ×4 (07:44→21:24)
[2017-02-09] MEDS: INSULIN GLARGINE SOLOSTAR 100 UNITS/ML 3 ML PEN SC SCH ×2 (07:45→21:18)
[2017-02-09] MEDS: OXYCODONE HCL IR 5 MG TAB (IMMEDIATE RELEASE) PO PRN ×3 (07:49→23:42)
[2017-02-09] MEDS: SITAGLIPTIN 25 MG TAB PO SCH (08:40)
[2017-02-09] MEDS: LISINOPRIL 10 MG TAB PO SCH (08:40)
[2017-02-09] MEDS: GABAPENTIN 300 MG CAP PO SCH ×3 (08:41→21:16)
--- NOTE | 2017-02-09 09:32 | Pharmacy Progress Note ---
Glycemic Control Progress Note Date of Service Feb 09, 2017. Scope Glycemic Pharmacist consulted for glycemic control to write orders per [facility] inpatient glycemic control protocol. Objective Accuchecks BSG (last 24hrs): Test 02/08/17 11:55 02/08/17 12:55 02/08/17 13:53 02/08/17 14:55 Bedside Glucose 259 mg/dl (70-99) 214 mg/dl (70-99) 261 mg/dl (70-99) 208 mg/dl (70-99) Test 02/08/17 15:58 02/08/17 17:00 02/08/17 17:50 02/08/17 19:18 Bedside Glucose 225 mg/dl (70-99) 205 mg/dl (70-99) 227 mg/dl (70-99) 284 mg/dl (70-99) Test 02/08/17 20:07 02/08/17 20:59 02/08/17 22:11 02/08/17 22:54 Bedside Glucose 260 mg/dl (70-99) 237 mg/dl (70-99) 192 mg/dl (70-99) 154 mg/dl (70-99) Test 02/08/17 23:55 02/09/17 00:50 02/09/17 01:55 02/09/17 04:21 Bedside Glucose 138 mg/dl (70-99) 122 mg/dl (70-99) 104 mg/dl (70-99) 116 mg/dl (70-99) Test 02/09/17 06:28 Bedside Glucose 139 mg/dl (70-99) HbA1c: Test 02/08/17 05:53 Hemoglobin A1c 9.3 % (4.5-5.6) H Recent Pertinent Medications Inpatient Anti-diabetic Regimen: * IV insulin infusion initiated on 02/08 am - discontinued 02/09 ~0200. * Lantus 38 units SQ qAM and 20 units qPM * Correctional Insulin with NOVOLOG per scale ACHS * Goal Range: Low 110 mg/dL - High 140 mg/dL * Correction Factor: 12 mg/dL/unit * Nutritional / Prandial insulin per carb ratio of 1 unit per 4 grams CHO consumed Risk Factors for Insulin Resistance: * Recent Surgery: POD #2 s/p lumbar decompression and fusion * Diet: T2DM Outpatient Anti-Diabetic Meds Oral Agents * Januvia 50 mg PO daily * Metformin 850 mg PO BID Assessment & Plan ASSESSMENT: * 71 yr old T2DM male POD #2 s/p lumbar decompression and fusion. * IV steroids given x 24 hours post-operatively - last dose yesterday at 1000 * IV insulin infusion initiated yesterday for sustained steroid induced hyperglycemia. Infusion discontinued overnight. * BSGs ranged from 104 to 281 mg/dL yesterday - received 116 units of SQ insulin * Fasting BSG of 139 mg/dL is improved. Continue basal insulin per scale * Post prandial BSGs elevated d/t steroids. I anticipate improvement today as steroid effect should have dissipated. Loosen CF/CR after dinner. PLAN FOR INPATIENT GLYCEMIC CONTROL: * Resume Januvia and Metformin * Lantus 0-20 units SQ tonight * 0 units for BSG <100 mg/dL * 10 units for BSG 100-140 mg/dL * 20 units for BSG greater than 140 mg/dL * Correctional Insulin with NOVOLOG per scale ACHS * Goal Range: Low 110 mg/dL - High 140 mg/dL * Correction Factor: 12 mg/dL/unit - change to 18 at 2100 * Nutritional / Prandial insulin per carb ratio of 1 unit per 4 grams CHO consumed - change to 6 at 2100 DISCHARGE RECOMMENDATIONS: * Poor outpatient control evidenced by 9.3% (02/08/17) * Patient would benefit from insulin on discharge especially in the setting of s /p lumbar surgery. * Patient agreeable to once daily Lantus per physician notes * Consider starting Lantus 22 units SQ once daily on discharge with titration per PCP. * Please note that the plan above was derived based on current level of insulin resistance and hospital stress. These recommendations are appropriate for inpatient admission only. Plan of care upon discharge will need to be reassessed to avoid potential outpatient hypo/hyperglycemia. Thank you.
[2017-02-09] MEDS ORDERED: INSULIN GLARGINE SOLOSTAR 100 UNITS/ML 3 ML PEN SC ONE (12:30)
[2017-02-09] MEDS ORDERED: RXC5 PO (13:37)
[2017-02-09] MEDS: METFORMIN HCL 850 MG TAB PO SCH ×2 (13:37→23:02)
--- NOTE | 2017-02-09 13:37 | Discharge Instructions ---
Discharge Instructions Date of Service Feb 09, 2017. Admission Reason for Admission: Lumbar Spinal Stenosis Discharge Discharge Diagnosis / Problem: lumbar spinal stenosis Discharge Goals Goal(s): Improve function Activity Recommendations Activity Limitations: per Instructions/Follow-up section . Instructions / Follow-Up Instructions / Follow-Up ACTIVITY RECOMMENDATIONS: SELF CARE INSTRUCTIONS AFTER THORACIC/LUMBAR FUSIONS 1. You may walk to your tolerance. It is good exercise for your legs and back. Expect some back and intermittent leg aches and pains. 2. You may perform "counter-top" level activities (make a sandwich, jasiel with a project, etc.). 3. No bending or lifting of more than 10 pounds or back twisting of any nature (roll like a log when turning in bed). 4. You may ride in a car for 20-30 minutes at a time. No driving until after your first visit with your doctor. 5. Frequent changes of position and restricting sitting to 30 minutes at a time will help limit the amount of back spasms and stiffness you may experience. 6. You may discontinue the use of ambulatory aids (cane, crutches, etc.) once your strength and confidence allow. 7. You may field instructor the shower and let water strike your incision when you arrive home at least once daily. Do not take a tub bath, sit in a hot tub or go into a swimming pool until after your first recheck in the office. SPECIAL CARE INSTRUCTIONS: VERY IMPORTANT TO READ AND REVIEW A. Your surgical incision has been closed with a cosmetic suture under the skin that will dissolve in about 6 weeks. In 14 days, you can use a pair of clean scissors and cut the suture that is left outside of the skin at the ends of your incision. 1. The small skin tapes can be removed 7 days after surgery if they have not fallen off by that point. 2. You may keep the wound open to air as much as possible to promote healing after post-op day number 5 unless told otherwise by your doctor. 3. If you think the wound looks like it is becoming infected (redness or worsening drainage) and/or you are experiencing fever, chill or worsening back pain and muscle spasms, contact the office so that we may evaluate you as soon as possible. B. Complications are uncommon, but please contact us if you have any signs or symptoms of: 1. wound infection (fever higher than 102.5 degrees F, redness, separation of wound, drainage, or increasing pain from the incision) 2. blood clots in legs (pain, swelling, redness and warmth in legs) 3. urinary tract infection (fever higher than 102.5 degrees F, burning upon urination or increased frequency of urination) 4. nerve problems (inability to walk on your toes or heels, numbness, loss of bowel or bladder control) 5. any other symptoms that concern you C. Please call the office at if you have any concerns or questions about your operation or recovery. D. No smoking! Smoking drastically decreases the chance of a solid fusion. E. Do not take any anti-inflammatory medications (Indocin, Advil, Motrin, Aspirin, Naprosyn, etc.) as these may inhibit the chance of a solid fusion. Tylenol is okay to take for pain. MANAGING PAIN AFTER SPINAL SURGERY 1. Narcotic medication is intended for short-term use and will be provided for surgical pain. Surgical pain usually lasts for a period of 4-6 weeks. Narcotic medication includes Percocet, Vicodin, Darvocet, Tylenol #3 or Lortab. 2. Longer-term pain is more appropriately treated with non-narcotic medication such as Tylenol ES. 3. Muscle spasm is not appropriately treated with narcotics. Muscle relaxers such as Soma, Flexeril or Skelaxin can be used along with Tylenol ES. 4. Remember that we all live with some "aches and pains". This is not unusual or uncommon after an injury or as we get older. a. Back pain is expected and may include muscle spasms for 4 to 6 weeks after surgery. The pain should gradually improve. If the pain worsens for no apparent reason, please contact the office. b. Intermittent leg pain may also be experienced and should not be concerned about unless it worsens for no apparent reason. If so, please contact the office. 5. We will provide appropriate medication within the normal guidelines of their prescribed use. We will also be very cautious and aware of potential abuse and extended duration of patients' medication needs. a. Pain medications are for your comfort and to assist with sleep and rest so that the tissue can heal. They are not provided in order to return to normal activity and should not be used through the day. To do so or worsening pain at night can result from ongoing tissue damage and development of tolerance to the prescribed medicine. 6. Please allow 2-3 days to process refills. Prescriptions will not be mailed but must be picked up at the office. FOLLOW UP VISIT: Keep your scheduled follow-up appointment. Any questions, please call the office at . Current Hospital Diet Patient's current hospital diet: Diabetes Type 2 Diet Discharge Diet Recommended Diet: Regular Diet Procedures Procedures Performed: #1 lumbar decompression medial facetectomies foraminotomies L2 3 L3 4 L4 5 L5-S1. #2 posterior spinal fusion L3 4 L4 5 L5-S1. #3 placement of posterior segmental instrumentation L3 4 L4 5 L5-S1. #4 interbody fusion L4 5 L5-S1. #5 placement peek cage 13 x 26 mm at L4 5. 14 x 26 mm at L5-S1. #6 placement of locally harvested morcellized autograft in the posterior lateral gutters. #7 placement of infuse collagen sponge commode Master graft in the posterior lateral gutters and ostial amp in the interbody space. Pending Studies Studies pending at discharge: no Laboratory Results Hemoglobin A1c Test 02/08/17 05:53 Range/Units Estimated Average Glucose 220 mg/dl Hemoglobin A1c 9.3 H 4.5-5.6 % Medical Emergencies . Who to Call and When: Medical Emergencies: If at any time you feel your situation is an emergency, please call 911 immediately. . Non-Emergent Contact Non-Emergency issues call your: Primary Care Provider . "Provider Documentation" section prepared by Avni Tom. . VTE Core Measure Inpt VTE Proph given/why not?: Tiffany Bethea, SCD's
--- NOTE | 2017-02-09 14:17 | Progress Note ---
Progress Note Date of Service Feb 09, 2017. Progress Note Back pain is well-controlled. Leg pain markedly improved. On exam vital signs are stable. He is sitting in a chair comfortable. His good strength testing. Assessment status post lumbar decompression fusion. Planned this time anticipate possible discharge home tomorrow with home health.
[2017-02-09] MEDS ORDERED: INSDGIPEN SC (14:44)
--- NOTE | 2017-02-09 14:48 | Consultant Recommendations ---
Director Of Graduate Medical Education Recommendations Date of Service Feb 09, 2017. Director Of Graduate Medical Education Recommendations MEDICINE ATTENDING NOTE : YOU ARE STARTED ON INSULIN LANTUS 22 UNITS -PLEASE TAKE IT BEFORE [facility] WILL CALL YOU FOR APPOINTMENT IN 1-2 DAYS [facility] CL[facility]IC AT [facility] IS AWARE OF YOUR INSULIN DOSE please have fasting blood sugar checked twice daily -before breakfast ( fasting ) and before bed time keep log -bring to next physician visit Blood Glucose Goal * Before Meals 80-120 * After Meals Less than 180 When to Call Provider Comment * Blood Sugars Persistently Greater than 200; Blood Sugar Less than 70 Diet Instructions * Mindful of Portion Sizes Activity Level * When Cleared by Provider * Aim for 30 Minutes/Day
[2017-02-09] MEDS ORDERED: lantus SQ (15:17)
[2017-02-09] MEDS ORDERED: METF-383 PO (15:21)
[2017-02-09 15:27] VITALS: BP 121/73; PULSE 85; TEMP 36.6; O2SAT 94
[2017-02-09 15:31] VITALS: BMI 34.5
--- NOTE | 2017-02-09 20:26 | Progress Note ---
Internal Med Progress Note Date of Service: Feb 09, 2017. Provider Documentation: SUBJECTIVE: back pain has improved still has DENISE drain discussed regarding option of basal Lantus at home willing to try to do insulin once daily OBJECTIVE: Vital Signs-as noted below Exam: General-no sign of distress Eyes-sclera non icteric ENT-NAD Neck-no JVD Lungs-CTA Heart-regular S1/S2 Abdomen-soft, non tender Extremities-no lower ext edema ; s/p spinal surgery , DENIES drain present Neuro-AAO x3 Lab data as noted below. ASSESSMENT & PLAN: S/P LUMBAR DECOMPRESSION/ FUSION POD # [address] Tom Doing well postoperatively Pain control, wound care, and activity per ortho Continue incentive spirometry Monitor daily H/H for sign of acute blood loss anemia PT/ OT DM TYPE 2 Hold Januvia and metformin; will be resumed on discharge poorly controlled HB A1 C 9.3 pt admits of not following diabetic diet no doing exercise BSG's elevated to 300s -> improved to 200's Monitor for worsening BSG's while on postop IV steroids Novolog sliding scale Pharmacy on board for glycemic control-appreciate input pt will benefit from addition of basal Lantus for better control of blood sugar and improved A1c D/w pt -willing to do once daily basal Lantus , does not want to do pre meals - will be too complicated for him follows with MTM clinic at [facility] pt will be discharged on Insulin Lantus 22 unit pre dinner -has high co pay of 105 $ per pen sent script for vial to his pharmacy ( cheaper option ) pt will be followed with MTM clinic -for further adjustment of insulin dose HYPERTENSION Continue lisinopril/HCTZ COPD Not in acute exacerbation Continue home inhaler PAYTON Continue CPAP DYSLIPIDEMIA Continue statin DVT PROPHYLAXIS Per ortho DISPOSITION cont PT/OT Vital Signs: Date Time Temp Pulse Resp B/P (MAP) Pulse Ox O2 Delivery O2 Flow Rate FiO2 02/09/17 16:15 Room Air 02/09/17 15:27 36.6 85 18 121/73 (89) 94 Room Air 02/09/17 07:39 Room Air 02/09/17 06:36 36.4 76 18 131/77 (95) 97 Room Air 02/09/17 00:53 CPAP 02/08/17 23:55 36.5 83 18 118/74 (89) 94 Room Air Lab Results: Results Past 24 Hours Test 02/08/17 20:59 02/08/17 22:11 02/08/17 22:54 02/08/17 23:55 Range/Units Bedside Glucose 237 192 154 138 70-99 mg/dl Test 02/09/17 00:50 02/09/17 01:55 02/09/17 04:21 02/09/17 06:28 Range/Units Bedside Glucose 122 104 116 139 70-99 mg/dl Test 02/09/17 12:01 Range/Units Bedside Glucose 189 70-99 mg/dl
[2017-02-09] MEDS ORDERED: CYCLOBENZAPRINE HCL 10 MG TAB PO PRN (20:30)
[2017-02-09] MEDS ORDERED: OXYCODONE HCL IR 5 MG TAB (IMMEDIATE RELEASE) PO PRN (20:30)
[2017-02-09] MEDS: PRAVASTATIN SOD 20 MG TAB PO SCH (21:15)
[2017-02-09] MEDS: DOCUSATE SODIUM/SENNA 50/8.6MG TAB PO SCH (21:16)
[2017-02-09 22:42] VITALS: BP 123/72; PULSE 88; TEMP 36.7; O2SAT 96
[2017-02-10] MEDS: POLYETHYLENE (MIRALAX) 17 GM PACK PO SCH ×4 (06:12→23:35)
[2017-02-10 07:23] VITALS: BP 125/73; PULSE 81; TEMP 36.6; O2SAT 95
[2017-02-10] MEDS: OXYCODONE HCL IR 5 MG TAB (IMMEDIATE RELEASE) PO PRN ×3 (08:02→21:33)
[2017-02-10] MEDS ORDERED: METFORMIN HCL 850 MG TAB PO SCH (08:30)
[2017-02-10] MEDS ORDERED: SITAGLIPTIN 25 MG TAB PO SCH (09:00)
[2017-02-10] MEDS: INSULIN ASPART 100 UNITS/ML 3 ML PEN SC SCH ×4 (09:18→21:00)
[2017-02-10] MEDS: INSULIN GLARGINE SOLOSTAR 100 UNITS/ML 3 ML PEN SC SCH ×2 (09:19→21:30)
[2017-02-10] MEDS: GABAPENTIN 300 MG CAP PO SCH ×3 (09:22→21:28)
[2017-02-10] MEDS: SITAGLIPTIN 25 MG TAB PO SCH (09:22)
[2017-02-10] MEDS: LISINOPRIL 10 MG TAB PO SCH (09:22)
--- NOTE | 2017-02-10 10:15 | Pharmacy Progress Note ---
Glycemic Control Progress Note Date of Service Feb 10, 2017. Scope Glycemic Pharmacist consulted for glycemic control to write orders per [facility] inpatient glycemic control protocol. Objective Accuchecks BSG (last 24hrs): Test 02/09/17 12:01 02/10/17 04:05 02/10/17 07:51 Bedside Glucose 189 mg/dl (70-99) 111 mg/dl (70-99) 106 mg/dl (70-99) HbA1c: Test 02/08/17 05:53 Hemoglobin A1c 9.3 % (4.5-5.6) H Recent Pertinent Medications Inpatient Anti-diabetic Regimen: * Lantus 20 units SQ BID * Correctional Insulin with NOVOLOG per scale ACHS * Goal Range: Low 110 mg/dL - High 140 mg/dL * Correction Factor: 18 mg/dL/unit * Nutritional / Prandial insulin per carb ratio of 1 unit per 6 grams CHO consumed * Oral agents: Metformin 850 mg BID, Januvia 50 mg qAM Outpatient Anti-Diabetic Meds Oral Agents Assessment & Plan ASSESSMENT: * 71 yr old T2DM male POD #3 s/p lumbar decompression and fusion. Hyperglycemia from steroids resolved. * BSGs ranged from 116 to 251 mg/dL yesterday * Pt received 86 units of insulin over the past 24 hours * 40 units of basal * 46 units of prandial * Changes needed to current regimen: * Fasting BSG of 106 mg/dL is at goal. Loosen Lantus scale since steroid effect has dissipated. * Post prandial BSGs are improved and near goal. CF/CR was loosened last evening. May need to loosen further depending on trend throughout the day. PLAN FOR INPATIENT GLYCEMIC CONTROL: * Oral agents * Januvia 50 mg PO daily * Metformin 850 mg PO BID (@1400 and 2200 - this is how pt takes at home) * Lantus 0-15 units SQ tonight * 0 units for BSG <100 mg/dL * 10 units for BSG 100-140 mg/dL * 15 units for BSG greater than 140 mg/dL * Correctional Insulin with NOVOLOG per scale ACHS * Goal Range: Low 110 mg/dL - High 140 mg/dL * Correction Factor: 18 mg/dL/unit - may loosen to 20 after lunch based on BSG trend * Nutritional / Prandial insulin per carb ratio of 1 unit per 6 grams CHO consumed - may loosen to 7 after lunch based on BSG trend DISCHARGE RECOMMENDATIONS: * Poor outpatient control evidenced by 9.3% (02/08/17) * Patient would benefit from insulin on discharge especially in the setting of s /p lumbar surgery. * Patient agreeable to once daily Lantus per physician notes * Consider starting Lantus 22 units SQ once daily on discharge with titration per PCP. * Please note that the plan above was derived based on current level of insulin resistance and hospital stress. These recommendations are appropriate for inpatient admission only. Plan of care upon discharge will need to be reassessed to avoid potential outpatient hypo/hyperglycemia. Thank you.
--- NOTE | 2017-02-10 11:52 | Progress Note ---
Progress Note Date of Service Feb 10, 2017. Progress Note Patient is progressing nicely. Leg pain controlled. Vital signs stable. DENISE drain still somewhat significant. On exam is interior bedside demonstrates good strength testing appears comfortable. Assessment status post lumbar decompression fusion. Planned this time will maintain the DENISE drain another 24 hours. Increases bowel regiment and plan for discharge to nursing facility tomorrow.
[2017-02-10] MEDS ORDERED: KETOROLAC TROMETHAMINE 15 MG/ML VIAL IV. PRN (12:00)
[2017-02-10 12:48] VITALS: Ht 177.8 cm; Wt 109.0 kg
[2017-02-10] MEDS: METFORMIN HCL 850 MG TAB PO SCH ×2 (14:28→21:29)
[2017-02-10 15:05] VITALS: BP 128/78; PULSE 85; TEMP 36.4; O2SAT 96
--- NOTE | 2017-02-10 18:28 | Progress Note ---
Internal Med Progress Note Date of Service: Feb 10, 2017. Provider Documentation: SUBJECTIVE: still have DENISE drain back pain continues to improve willing for long active basal Lantus at night time on discharge OBJECTIVE: Vital Signs-as noted below Exam: General-no sign of distress Eyes-sclera non icteric ENT-NAD Neck-no JVD Lungs-CTA Heart-regular S1/S2 Abdomen-soft, non tender Extremities-no lower ext edema ; s/p spinal surgery , DENISE drain present Neuro-AAO x3 Lab data as noted below. ASSESSMENT & PLAN: S/P LUMBAR DECOMPRESSION/ FUSION POD # [address] Tom Doing well postoperatively Pain control, wound care, and activity per ortho Continue incentive spirometry PT/ OT DM TYPE 2 was on Januvia and metformin at home poorly controlled HB A1 C 9.3 pt admits of not following diabetic diet /not doing exercise had post op hyperglycemia due to IV steroids BSG much improved after adjustment of sliding scale Pharmacy on board for glycemic control-appreciate input pt will benefit from addition of basal Lantus for better control of blood sugar and improved A1c D/w pt -willing to do once daily basal Lantus , does not want to do pre meals - will be too complicated for him follows with [facility] clinic at [facility] pt will be discharged on Insulin Lantus 22 unit pre dinner -has high co pay of 105 $ per pen sent script for vial to his pharmacy ( cheaper option ) /can also have [employer] brand pt will be followed with MTM clinic -for further adjustment of insulin dose script for insulin insulin syringe One Touch Verio testing strip /Lancets sent to Pt's Pharmacy at [facility] HYPERTENSION Continue lisinopril/HCTZ COPD Not in acute exacerbation Continue home inhaler PAYTON Continue CPAP DYSLIPIDEMIA Continue statin DVT PROPHYLAXIS scd and teds DISPOSITION per Ortho Vital Signs: Date Time Temp Pulse Resp B/P (MAP) Pulse Ox O2 Delivery O2 Flow Rate FiO2 02/10/17 15:05 36.4 85 18 128/78 (95) 96 Room Air 02/10/17 08:00 Room Air 02/10/17 07:23 36.6 81 19 125/73 (90) 95 Room Air 02/09/17 23:40 Room Air 02/09/17 22:42 36.7 88 20 123/72 (89) 96 Room Air Lab Results: Results Past 24 Hours Test 02/09/17 20:42 02/09/17 22:40 02/10/17 04:05 02/10/17 07:51 Range/Units Bedside Glucose 251 126 111 106 70-99 mg/dl Test 02/10/17 11:58 02/10/17 17:06 Range/Units Bedside Glucose 156 146 70-99 mg/dl
[2017-02-10] MEDS ORDERED: INSDGIPEN SC (18:31)
[2017-02-10] MEDS: PRAVASTATIN SOD 20 MG TAB PO SCH (21:28)
[2017-02-10] MEDS: DOCUSATE SODIUM/SENNA 50/8.6MG TAB PO SCH (21:28)
[2017-02-10 22:52] VITALS: BP 149/79; PULSE 80; TEMP 36.8; O2SAT 95
[2017-02-11] MEDS: POLYETHYLENE (MIRALAX) 17 GM PACK PO SCH (06:00)
[2017-02-11] MEDS: OXYCODONE HCL IR 5 MG TAB (IMMEDIATE RELEASE) PO PRN ×3 (06:06→16:50)
[2017-02-11] MEDS ORDERED: NURSING DECISION MEDICATION ORDER SCH (06:15)
[2017-02-11 07:17] VITALS: BP 119/80; PULSE 84; TEMP 36.5; O2SAT 92
[2017-02-11] MEDS: GABAPENTIN 300 MG CAP PO SCH ×2 (08:43→13:48)
[2017-02-11] MEDS: INSULIN ASPART 100 UNITS/ML 3 ML PEN SC SCH ×2 (08:46→13:08)
[2017-02-11] MEDS: INSULIN GLARGINE SOLOSTAR 100 UNITS/ML 3 ML PEN SC SCH (08:47)
[2017-02-11 08:51] VITALS: BP 114/65; PULSE 81
[2017-02-11] MEDS: LISINOPRIL 10 MG TAB PO SCH (08:52)
[2017-02-11] MEDS: SITAGLIPTIN 25 MG TAB PO SCH (09:23)
[2017-02-11] MEDS: METFORMIN HCL 850 MG TAB PO SCH (13:49)
--- NOTE | 2017-02-11 15:57 | Discharge Summary ---
Orthopedic Discharge Summary Admission Date/Reason Feb 07, 2017 at 07:30 Lumbar Spinal Stenosis. Discharge Date/Disposition Feb 11, 2017 Home with services Diagnosis Principal Diagnosis: Lumbar spinal stenosis Admission Physical Exam As per Admitting History & Physical. Hospital Course Patient was admitted underwent lumbar decompression fusion tolerated this well as taken to the orthopedic floor postoperatively. He progressed nicely throughout the week improving his ambulation and leg pain. Socially discharge home with home health discharge orders and instructions found on the chart for further review. Discharge Instructions Please refer to the electronic Patient Visit Report (Discharge Instructions) for additional information.
[2017-02-11 16:06] VITALS: BP 118/65; PULSE 89; TEMP 36.6; O2SAT 94
[2017-02-11 16:11] VITALS: BP 118/65; PULSE 89; TEMP 36.6; O2SAT 94
== END 2017-02-11 17:00 | disposition home health service (06) | DRG 460 ==
LOC: C.ACU 05:54 → C.3E 07:30 → ENRESERV 11:57
PROVIDERS: ADMIT Orthopaedic Surgery Orthopaedic Surgery of the Spine; ATTEND Orthopaedic Surgery Orthopaedic Surgery of the Spine
PROC: 0SG00AJ Fusion of Lumbar Vertebral Joint with Interbody Fusion Device, Posterior Approach, Anterior Column, Open Approach (ICD-10-PCS; principal; 2017-02-07 07:45)
PROC: 0SG30AJ Fusion of Lumbosacral Joint with Interbody Fusion Device, Posterior Approach, Anterior Column, Open Approach (ICD-10-PCS; principal; 2017-02-07 07:45)
PROC: 0SG30Z1 (ICD-10-PCS; principal; 2017-02-07 07:45)
PROC: 01NB0ZZ Release Lumbar Nerve, Open Approach (ICD-10-PCS; principal; 2017-02-07 07:45)
PROC: 0SG10Z1 (ICD-10-PCS; principal; 2017-02-07 07:45)
DX: M48.06 Spinal stenosis, lumbar region (principal); M43.16 Spondylolisthesis, lumbar region; E11.65 Type 2 diabetes mellitus with hyperglycemia; I10 Essential (primary) hypertension; J44.9 Chronic obstructive pulmonary disease, unspecified; G47.33 Obstructive sleep apnea (adult) (pediatric); E78.5 Hyperlipidemia, unspecified; E66.9 Obesity, unspecified; Z68.34 Body mass index [BMI] 34.0-34.9, adult; Z87.891 Personal history of nicotine dependence; Z87.442 Personal history of urinary calculi; Z79.84 Long term (current) use of oral hypoglycemic drugs; Z79.899 Other long term (current) drug therapy; Z80.1 Family history of malignant neoplasm of trachea, bronchus and lung

== ENCOUNTER → 2017-09-05 | Outpatient (CLI) | payer OTHER, MEDICARE ==
[~2017-09-05] MED LIST changes: +INSDGIPEN SC; -OXYC-106 PO; +OXYC10TA80 PO; +RXC5 PO; +SILD100T PO
[2017-09-05 12:41] LABS: BLOOD UREA NITROGEN 27 mg/dl (7-18); CREATININE 1.35 mg/dl (0.60-1.40)
== END | disposition home or self-care (01) ==
LOC: C.LAB 11:46
PROVIDERS: ATTEND Psychiatry & Neurology Neurology
DX: R48.2 Apraxia (principal); R32 Unspecified urinary incontinence

== ENCOUNTER → 2017-09-07 | Outpatient (CLI) | payer OTHER, MEDICARE ==
[~2017-09-07] MED LIST changes: +GADAVIST IV PRN
--- NOTE | 2017-09-07 17:51 | DIAGNOSTIC IMAGING REPORT ---
MRI OF THE BRAIN WITHOUT AND WITH IV CONTRAST CLINICAL HISTORY: R48.2 Gait [id number] Urinary incontinence. Evaluate for normal pressure hydrocephalus. COMPARISON STUDY: No previous studies for comparison. TECHNIQUE: MRI of the brain was performed from the vertex to the skull base utilizing various T1 and T2 weighted sequences. Following the IV administration of 11 mL of Gadavist contrast, additional enhanced images were obtained. FINDINGS: Sagittal T1, axial diffusion, proton density and T2 weighted axial, coronal FLAIR, and pre and post axial T1-weighted images were acquired. These were supplemented with post gadolinium coronal T1 weighted images. No intra or extra-axial mass lesions are visualized. Axial diffusion-weighted images reveal no evidence of acute or subacute infarction. There is no evidence of ventricular dilatation. Proton density T2-weighted and FLAIR images reveal minor foci of increased T2 signal within the white matter, likely on a small vessel basis, and not unexpected for age.r there is a 3 mm CSF space in the left subcortical frontoparietal junction. There are no abnormal flow voids. There is no evidence of pathologic enhancement. IMPRESSION: 1. No acute intracranial findings 2. No evidence of acute or subacute infarction 3. No evidence of intracranial mass 4. No evidence of hydrocephalus Electronically signed by: Amos Zhao M.D. 09/07/2017 5:49 PM Dictated Date/Time: 09/07/2017 5:46 PM
== END | disposition home or self-care (01) ==
LOC: C.MRI 16:12
PROVIDERS: ATTEND Psychiatry & Neurology Neurology
DX: R48.2 Apraxia (principal); R32 Unspecified urinary incontinence